=== PATIENT | female | born 1965 | race Caucasian/White ===

== ENCOUNTER 2019-04-10 23:04 | Emergency (ER) | payer OTHER ==
[~2019-04-10] VITALS: Ht 172.7 cm; Wt 62.2 kg
--- NOTE | 2019-04-10 23:50 | NUR ---
PT REPOTS METASTATIC BREAST CANCER STAGE FOUR. PT STARTED ON A NEW ORAL CHEMO AGENT "CAPECITABINE" 500 MG. PT REPORTS BEING IN THE SUN ALL DAY, AND HAVING BLADDER PAIN, BONE PAIN, BACK PAIN, AND HAS BEEN SHAKY AND EXHAUSTED. MONITORS APPLIED, SIDERAILS UP X2, CALL LIGHT WITHIN REACH
[2019-04-11] MEDS ORDERED: ONDANSETRON 2MG/ML, 2ML IVPush ONE
[2019-04-11] MEDS ORDERED: ACETAMINOPHEN 500 MG TABLET PO ONE
[2019-04-11] MEDS ORDERED: LIDOCAINE 4% CREAM 5GM TUBE TP PRN
[2019-04-11] MEDS ORDERED: SODIUM CHLORIDE FLUSH 10ML SYR IVF ONE
[2019-04-11] MEDS ORDERED: ONDANSETRON 2MG/ML, 2ML ONE (00:01)
[2019-04-11] MEDS ORDERED: ACETAMINOPHEN 500 MG TABLET ONE (00:01)
[2019-04-11] MEDS ORDERED: CAPE500T24 PO (00:06)
[2019-04-11] MEDS ORDERED: CARB200T PO (00:06)
--- NOTE | 2019-04-11 00:09 | NUR ---
PT UP TO RR WITH STEADY GAIT, PROVIDED PT WITH URINE CUP FOR SAMPLE
[2019-04-11 00:23] LABS: INTERNATIONAL NORMALIZED RATIO 0.98 (0.93-1.1); PROTHROMBIN TIME 10.3 Seconds (9.6-11.5)
[2019-04-11 00:24] LABS: MICROSCOPIC AUTO
[2019-04-11 00:25] LABS: CULTURE INDICATED? YES
[2019-04-11 00:36] LABS: ALANINE AMINOTRANSFERASE 40 U/L (12-78); ALBUMIN 3.4 g/dL (3.4-5.0); ANION GAP 8 mmol/L (5-15); CALCIUM 8.4 mg/dL (8.5-10.1); CHLORIDE 100 mmol/L (98-107); CREATININE 0.92 mg/dL (0.55-1.02)
[2019-04-11 00:39] LABS: ALKALINE PHOSPHATASE 125 U/L (45-117); BILIRUBIN,TOTAL 0.9 mg/dL (0.2-1.0); TOTAL PROTEIN 7.4 g/dL (6.4-8.2)
--- NOTE | 2019-04-11 01:06 | NUR ---
PT UP TO RR WITH STEADY GAIT
--- NOTE | 2019-04-11 01:12 | NUR ---
PT RESTING ON GURNEY, DENIES NEEDS AT THIS TIME, MONITORS IN PLACE, IV FLUIDS INFUSING, CALL LIGHT WITHIN REACH.
--- NOTE | 2019-04-11 01:26 | NUR ---
PROVIDED PT WITH PO FLUIS FOR CHALLENGE
[2019-04-11] MEDS ORDERED: SODIUM CHLORIDE 0.9% 1,000ML IVBOLUS ONE ×2 (01:30)
--- NOTE | 2019-04-11 01:34 | NUR ---
PT TOLERATING PO FLUIDS, DENIES NAUSEA OR PAIN
--- NOTE | 2019-04-11 02:14 | NUR ---
BREAK RN: ERP AT BEDSIDE FOR RE-EVALUATION.
[2019-04-11] MEDS ORDERED: CEFTRIAXONE PMX 1GM/50ML 50 ML ONE (02:23)
[2019-04-11 02:27] VITALS: BP 114/66
--- NOTE | 2019-04-11 02:29 | NUR ---
PT RESTING CALMLY, IV ABX INFUSING, MONITORS IN PLACE, CALL LIGHT WITHIN REACH
[2019-04-11] MEDS ORDERED: CEFTRIAXONE PMX 1GM/50ML 50 ML IV ONE (02:30)
== END 2019-04-11 03:08 | disposition home or self-care (01) ==
LOC: ED 04-11 02:58
DX: A41.9 Sepsis, unspecified organism (principal); N30.00 Acute cystitis without hematuria; R11.0 Nausea; I10 Essential (primary) hypertension; Z85.3 Personal history of malignant neoplasm of breast; R42 Dizziness and giddiness
CPT/HCPCS: 36415; 80053; 81001; 83605; 84145; 85025; 85610; 85730; 87077; 87086; 87186; 93005; 96365; 96375; 99284; J0696; J2405; J7030; 96361